=== PATIENT | male | born 1950 | race African-American/Black ===

== ENCOUNTER 2020-01-25 22:58 | Inpatient (IN) | payer MEDICAID, OTHER ==
[~2020-01-25] VITALS: Ht 175.3 cm; Wt 54.2 kg
[2020-01-25] MEDS ORDERED: SODIUM CHLORIDE 0.9% 500 ML IVB ONE (23:03)
[2020-01-26] VITALS (13 sets, daily range): BP systolic 85–98; BP diastolic 49–69
[2020-01-26] MEDS ORDERED: SODIUM CHLORIDE 0.9% 500 ML IV ONE
[2020-01-26 00:01] LABS: Basophils # (auto) 0 10 ^3/uL (0-0.2); Eosinophils # (auto) 0 10 ^3/uL (0-0.8); Eosinophils % (auto) 0.1 % (0.0-7.0); Mean Corpuscular Hemoglobin 22.6 pg (28.0-32.0); Monocytes # (auto) 0.4 10 ^3/uL (0-1.3); Monocytes % (auto) 4.2 % (0.0-12.0)
[2020-01-26 00:03] LABS: Basophils % (auto) 0.3 % (0.0-2.0); Hematocrit 22.2 % (41.0-53.0); Lymphocytes # (auto) 0.5 10 ^3/uL (0.4-5.4); Lymphocytes % (auto) 5.5 % (10.0-50.0); Mean Corpuscular Hgb Conc. 30.9 g/dL (32.0-36.0); Neutrophils # (auto) 8.4 10 ^3/uL (1.6-8.6); Neutrophils % (auto) 89.9 % (37.0-80.0); Nucleated Red Blood Cells % 0.8 %; Platelet Count (auto) 375 10^3/uL (140-450); Red Blood Cells 3.05 10^6/uL (4.5-5.90); White Blood Cell 9.4 10^3/uL (4.4-10.8)
[2020-01-26 00:08] LABS: Red Cell Distribution Width 31.1 % (11.8-14.3)
[2020-01-26 00:09] LABS: Hemoglobin 6.9 g/dL (13.5-17.5)
[2020-01-26 00:17] LABS: INR 1.36 (0.9-1.15); Partial Thromboplastin Time 26.6 sec (23.64-32.05)
[2020-01-26 00:24] LABS: Calcium 7.3 mg/dL (8.5-10.1); Magnesium 2.5 mg/dL (1.6-2.6); Potassium 3.9 mmol/L (3.5-5.1)
[2020-01-26 00:25] LABS: Lactic Acid w/Reflex 2.2 mmol/L (0.4-2.0)
[2020-01-26 00:26] LABS: Albumin 1.5 g/dL (3.4-5.0); BUN/Creatinine Ratio 111.8
[2020-01-26] MEDS ORDERED: ALBUMIN 5% 50 ML IV ONE ×2 (00:30→02:00)
[2020-01-26 00:34] LABS: Bilirubin, Total 0.4 mg/dL (0.2-1.0); CRP High Sensitivity 5.92 mg/dL (< 0.3); Total Protein 5.1 g/dL (6.4-8.2)
[2020-01-26] MEDS ORDERED: ALBUMIN 5% 250 ML IV ONE ×2 (00:45→02:30)
[2020-01-26] MEDS ORDERED: LEVOTHYROXINE SODIUM 100 MCG/5 ML INJ IV ONE (02:00)
[2020-01-26] MEDS ORDERED: PANTOPRAZOLE 40mg/50ML NS AE 50 ML IV ONE ×3 (02:30→05:30)
[2020-01-26] MEDS ORDERED: PANTOPRAZOLE 40 MG/10 ML VIAL INJ IV ONE ×2 (02:30)
[2020-01-26] MEDS ORDERED: ONDANSETRON HCL 4 MG/2 ML VIAL IV PRN (05:30)
[2020-01-26] MEDS ORDERED: MORPHINE SULF INJ 2 MG/ML SYRINGE 1ML IV PRN (05:45)
[2020-01-26] MEDS ORDERED: NITROGLYCERIN 0.4 MG SL TAB SL PRN (05:45)
[2020-01-26 06:43] LABS: Hematocrit 18.4 % (41.0-53.0)
[2020-01-26] MEDS: SODIUM CHLORIDE 0.9% 1,000 ML IV SCH ×2 (06:44→18:57)
[2020-01-26 06:49] LABS: Hemoglobin 5.9 g/dL (13.5-17.5)
[2020-01-26] MEDS: OCTREOTIDE ACETATE 500 MCG in SODIUM CHL 0.9% 99 ML IV SCH ×2 (07:47→17:43)
[2020-01-26] MEDS: PANTOPRAZOLE 40mg/50ML NS AE 50 ML IV SCH ×3 (10:17→20:28)
[2020-01-26] MEDS ORDERED: diphenhdrAMINE HCL 50 MG/1 ML VL ONE (14:17)
[2020-01-26] MEDS ORDERED: fentaNYL CITRATE 100 MCG/2 ML VL ONE (14:17)
[2020-01-26] MEDS ORDERED: LIDOCAINE VISCOUS 2% 15ML UD ONE (14:19)
[2020-01-26] MEDS: MIDAZOLAM HCL 5 MG/ML-1ML VIAL ONE ×2 (14:21→14:24)
[2020-01-26] MEDS ORDERED: AMINO ACID INFUSION IN D5W 2,000 ML IV NR ×2 (16:15→20:00)
[2020-01-26] MEDS ORDERED: DEXTROSE (50%) 50ML SYRG IV SCH (18:00)
[2020-01-26] MEDS: InsuLIN REG 1unit/0.01ml Soln (100units/ml) SC SCH (18:34)
[2020-01-26] MEDS: ACCU-CHEK COMFORT CURVE STRIP VI SCH (18:34)
[2020-01-26] MEDS ORDERED: PPN PER PHARMACY 0 ML IV SCH (20:00)
[2020-01-26 22:10] LABS: Hematocrit 31.8 % (41.0-53.0); Hemoglobin 9.9 g/dL (13.5-17.5)
[2020-01-27] MEDS: ACCU-CHEK COMFORT CURVE STRIP VI SCH ×4 (00:17→18:25)
[2020-01-27] MEDS: PANTOPRAZOLE 40mg/50ML NS AE 50 ML IV SCH ×2 (00:55→06:06)
[2020-01-27 01:17] LABS: Urine Bacteria NONE SEEN /hpf (None Seen); Urine Blood Negative /uL (Negative); Urine Hyaline Cast FEW /lpf (0 - 2); Urine Mucus FEW (None Seen); Urine Specific Gravity 1.024 (1.001-1.035); Urine WBC <1 /hpf (0 - 3)
[2020-01-27] MEDS ORDERED: OCTREOTIDE ACETATE 500 MCG/ML VL ONE (04:23)
[2020-01-27] MEDS: OCTREOTIDE ACETATE 500 MCG in SODIUM CHL 0.9% 99 ML IV SCH (04:44)
[2020-01-27] MEDS: InsuLIN REG 1unit/0.01ml Soln (100units/ml) SC SCH ×4 (06:00→18:00)
[2020-01-27 06:03] LABS: Basophils # (auto) 0 10 ^3/uL (0-0.2); Basophils % (auto) 0.1 % (0.0-2.0); Eosinophils # (auto) 0 10 ^3/uL (0-0.8); Eosinophils % (auto) 0.1 % (0.0-7.0); Hematocrit 29.7 % (41.0-53.0); Hemoglobin 9.7 g/dL (13.5-17.5); Lymphocytes # (auto) 0.4 10 ^3/uL (0.4-5.4); Mean Corpuscular Hgb Conc. 32.8 g/dL (32.0-36.0); Mean Corpuscular Volume 79.5 fL (80.0-100.0); Monocytes # (auto) 0.4 10 ^3/uL (0-1.3); Monocytes % (auto) 2.9 % (0.0-12.0); Neutrophils # (auto) 14.1 10 ^3/uL (1.6-8.6); Neutrophils % (auto) 93.9 % (37.0-80.0); Nucleated Red Blood Cells % 0.5 %; Platelet Count (auto) 218 10^3/uL (140-450); Red Blood Cells 3.74 10^6/uL (4.5-5.90)
[2020-01-27 06:06] LABS: Red Cell Distribution Width 24.5 % (11.8-14.3)
[2020-01-27 06:08] LABS: INR 1.23 (0.9-1.15)
[2020-01-27 06:11] LABS: Albumin 1.8 g/dL (3.4-5.0); BUN/Creatinine Ratio 133.3; Calcium 6.9 mg/dL (8.5-10.1); Magnesium 2.3 mg/dL (1.6-2.6); Potassium 3.3 mmol/L (3.5-5.1)
[2020-01-27 06:25] LABS: Bilirubin, Total 0.6 mg/dL (0.2-1.0); Phosphorus 1.2 mg/dL (2.5-4.90); Total Protein 4.6 g/dL (6.4-8.2)
[2020-01-27 08:15] VITALS: BP 107/66
[2020-01-27] MEDS ORDERED: POTASSIUM PHOSPHATE 44 MEQ in D5W 5% 250 ML IV ONE (09:30)
[2020-01-27] MEDS: SODIUM CHLORIDE 0.9% 1,000 ML IV SCH (10:21)
[2020-01-27] MEDS ORDERED: TPN PER PHARMACY 0 ML IV SCH (10:30)
--- NOTE | 2020-01-27 10:53 | NUR ---
Nutrition Consult Est energy needs 8331-0182 kcal (30-35 kcal/kg BW 49.895kg) Est protein needs 50-65g (1-1.3g/kg BW 49.895 d/t edmond espinosa alb) Will reassess prn Addendum: 01/27/20 at [address] Amended: Links added.
[2020-01-27 11:50] LABS: Hematocrit 30.8 % (41.0-53.0); Hemoglobin 9.9 g/dL (13.5-17.5)
[2020-01-27 12:00] VITALS: BP 102/60
[2020-01-27] MEDS: PIPERACILLIN-TAZOB 3.375GM 100 ML IV SCH ×2 (15:35→21:54)
[2020-01-27 17:00] VITALS: BP 105/67
[2020-01-27] MEDS: LACTATED RINGER'S 1,000 ML IV SCH (18:11)
[2020-01-27 18:19] LABS: Hematocrit 28.1 % (41.0-53.0); Hemoglobin 9.1 g/dL (13.5-17.5)
[2020-01-27 18:41] LABS: Pre Albumin 4.4 mg/dL (20.0-40.0)
--- NOTE | 2020-01-27 19:45 | NUR ---
Opening Shift Note Assumed care of patient, awake and alert. No S/S of distress/SOB or pain noted. Instructed on POC and to call for assist PRN. Bed is in lowest locked position with bed rails up x2 and call light is within reach of the patient.
[2020-01-27] MEDS ORDERED: PPN PER PHARMACY IV NR ×9 (20:00)
[2020-01-27 22:00] VITALS: BP 107/65
--- NOTE | 2020-01-27 23:00 | NUR ---
Bed bath: Bed bath given to the patient. Patient tolerated well. All linens changed. No s/s of distress SOB or pain noted. Call light is within reach of the patient.
[2020-01-28] MEDS: LACTATED RINGER'S 1,000 ML IV SCH ×2 (00:09→13:10)
[2020-01-28] MEDS: ACCU-CHEK COMFORT CURVE STRIP VI SCH ×5 (00:11→23:48)
[2020-01-28 05:00] VITALS: BP 98/68
[2020-01-28] MEDS: PIPERACILLIN-TAZOB 3.375GM 100 ML IV SCH ×3 (05:32→22:48)
[2020-01-28] MEDS: InsuLIN REG 1unit/0.01ml Soln (100units/ml) SC SCH ×5 (05:39→23:48)
[2020-01-28 07:22] LABS: Basophils # (auto) 0 10 ^3/uL (0-0.2); Eosinophils # (auto) 0 10 ^3/uL (0-0.8); Eosinophils % (auto) 0.1 % (0.0-7.0); Hematocrit 26.5 % (41.0-53.0); Hemoglobin 9.2 g/dL (13.5-17.5); Lymphocytes # (auto) 0.5 10 ^3/uL (0.4-5.4); Lymphocytes % (auto) 6.1 % (10.0-50.0); Mean Corpuscular Hemoglobin 27.3 pg (28.0-32.0); Mean Corpuscular Hgb Conc. 34.6 g/dL (32.0-36.0); Monocytes # (auto) 0.5 10 ^3/uL (0-1.3); Monocytes % (auto) 5.2 % (0.0-12.0); Neutrophils # (auto) 7.8 10 ^3/uL (1.6-8.6); Neutrophils % (auto) 88.6 % (37.0-80.0); Nucleated Red Blood Cells % 1.2 %; Platelet Count (auto) 194 10^3/uL (140-450); Red Blood Cells 3.36 10^6/uL (4.5-5.90); White Blood Cell 8.8 10^3/uL (4.4-10.8)
[2020-01-28 07:26] LABS: Red Cell Distribution Width 24.3 % (11.8-14.3)
--- NOTE | 2020-01-28 07:35 | NUR ---
Opening shift note Assumed care of patient from NOC FLASH Garcia. Patient is AOx4 no s/s of distress noted. Bed is in lowest locked position, side rails up x2, and call light is within reach. Updated patient on plan of care and patient verbalized understanding. Will continue to monitor q1hr and PRN.
[2020-01-28 07:41] LABS: Albumin 1.4 g/dL (3.4-5.0); BUN/Creatinine Ratio 106.9; Calcium 6.7 mg/dL (8.5-10.1); Magnesium 2.2 mg/dL (1.6-2.6); Potassium 3.3 mmol/L (3.5-5.1)
[2020-01-28 07:58] LABS: Bilirubin, Total 0.4 mg/dL (0.2-1.0); Phosphorus 2.3 mg/dL (2.5-4.90); Total Protein 4.3 g/dL (6.4-8.2)
[2020-01-28 09:07] VITALS: BP 95/61
[2020-01-28] MEDS ORDERED: POTASSIUM PHOSP 22MEQ(15MMOLE) in NS 100 ML IV ONE (10:45)
[2020-01-28] MEDS ORDERED: SODIUM PHOSP 20MEQ(15MMOL) IN NS 100 ML IV ONE (10:45)
--- NOTE | 2020-01-28 10:55 | NUR ---
IV removal IV at right forearm noted to be leaking and not patent. IV DC'd with clean sterile technique, catheter fully intact. Pressure dressing applied to site. Patient tolerated well.
--- NOTE | 2020-01-28 11:00 | NUR ---
IV insertion IV access obtained, via clean sterile technique by inserting 22 gauge catheter at right upper arm after 1 attempt. IV secured properly. No trauma to site. Patient tolerated well.
--- NOTE | 2020-01-28 12:00 | NUR ---
Physician rounding Dr. Cooper at bedside, updated MD on patient status. New orders received, will follow through with orders and will continue care.
[2020-01-28] MEDS ORDERED: VANCOMYCIN PER PHARMACY 0 MG IV SCH (12:30)
[2020-01-28] MEDS ORDERED: POTASSIUM EFFERVESENT TAB 25 MEQ PO ONE (12:30)
[2020-01-28 12:54] VITALS: BP 94/59
[2020-01-28] MEDS ORDERED: VANCOMYCIN 1GM/250ML 250 ML IV ONE (13:00)
--- NOTE | 2020-01-28 14:38 | NUR ---
Temperature reassessment Temperature is now 98.4. Patient is resting comfortably in bed, no s/s of distress noted. Will continue care.
[2020-01-28 16:54] VITALS: BP 104/68
[2020-01-28 17:43] LABS: Hemoglobin 8.8 g/dL (13.5-17.5)
[2020-01-28 17:45] LABS: Hematocrit 26.9 % (41.0-53.0)
[2020-01-28] MEDS: Ensure HIGH Protein Chocolate 8oz Bottle PO SCH (18:00)
--- NOTE | 2020-01-28 19:24 | NUR ---
END OF SHIFT NOTE Endorsed care to NOC FLASH Garcia, no s/s of distress noted.
[2020-01-28] MEDS ORDERED: PPN PER PHARMACY IV NR ×9 (20:00)
[2020-01-28 23:46] VITALS: BP 90/54
--- NOTE | 2020-01-29 01:02 | NUR ---
Vanco: No 750mg in 250 ml bag of vanco available as scheduled. Will recalculate to administer dose as ordered from available 1 gm vancomycin in 250 mls. Called extended pharmacy and spoke to Merrill to verify ml dose needed to be given for appropriate dosing. Amount verified as 187.5 ml to be given to the patient from available 1 gm in 250 ml to give administer ordered dose of 750mg of Vancomycin.
[2020-01-29] MEDS ORDERED: VANCOMYCIN 1GM/250ML 250 ML IV ONE (01:36)
[2020-01-29] MEDS: VANCOMYCIN 750mg/250ml 250 ML IV SCH ×2 (01:41→13:10)
[2020-01-29] MEDS: LACTATED RINGER'S 1,000 ML IV SCH ×3 (02:30→23:55)
[2020-01-29 05:55] VITALS: BP 96/62
[2020-01-29] MEDS: ACCU-CHEK COMFORT CURVE STRIP VI SCH ×4 (06:00→23:54)
[2020-01-29] MEDS: InsuLIN REG 1unit/0.01ml Soln (100units/ml) SC SCH ×4 (06:00→23:54)
[2020-01-29 06:08] LABS: Basophils # (auto) 0 10 ^3/uL (0-0.2); Basophils % (auto) 0.1 % (0.0-2.0); Eosinophils # (auto) 0 10 ^3/uL (0-0.8); Hematocrit 25.4 % (41.0-53.0); Hemoglobin 8.4 g/dL (13.5-17.5); Monocytes # (auto) 0.4 10 ^3/uL (0-1.3)
[2020-01-29 06:16] LABS: Eosinophils % (auto) 0.1 % (0.0-7.0); Lymphocytes # (auto) 0.6 10 ^3/uL (0.4-5.4); Lymphocytes % (auto) 10.1 % (10.0-50.0); Mean Corpuscular Hemoglobin 26.2 pg (28.0-32.0); Mean Corpuscular Hgb Conc. 33.1 g/dL (32.0-36.0); Monocytes % (auto) 6.5 % (0.0-12.0); Neutrophils # (auto) 5.2 10 ^3/uL (1.6-8.6); Neutrophils % (auto) 83.2 % (37.0-80.0); Nucleated Red Blood Cells % 0.7 %; Platelet Count (auto) 180 10^3/uL (140-450); Red Blood Cells 3.22 10^6/uL (4.5-5.90); White Blood Cell 6.2 10^3/uL (4.4-10.8)
[2020-01-29 06:32] LABS: Chloride 112 mmol/L (98-107); Potassium 3.7 mmol/L (3.5-5.1); Sodium 139 mmol/L (136-145)
[2020-01-29] MEDS: PIPERACILLIN-TAZOB 3.375GM 100 ML IV SCH ×3 (06:34→22:42)
[2020-01-29 06:59] LABS: Red Cell Distribution Width 24.2 % (11.8-14.3)
[2020-01-29 07:05] LABS: Alanine Aminotransferase 22 U/L (16-61); Albumin 1.3 g/dL (3.4-5.0); Alkaline Phosphatase 59 U/L (45-117); Anion Gap 5 (5-15); Aspartate Aminotransferase 12 U/L (15-37); BUN/Creatinine Ratio 95.5; Bilirubin, Total 0.4 mg/dL (0.2-1.0); Blood Urea Nitrogen 21 mg/dL (7-18); Calcium 6.8 mg/dL (8.5-10.1); Carbon Dioxide 22 mmol/L (21-32); GFR African American 548 mL/min; GFR Non-African American 453 mL/min; Glucose 104 mg/dL (74-106); Phosphorus 1.6 mg/dL (2.5-4.90); Pre Albumin < 3.0 mg/dL (20.0-40.0); Total Protein 4.2 g/dL (6.4-8.2); Triglycerides 97 mg/dL (< 150)
[2020-01-29 08:00] VITALS: BP 96/61
[2020-01-29] MEDS: Ensure HIGH Protein Chocolate 8oz Bottle PO SCH ×3 (08:07→17:23)
[2020-01-29] MEDS ORDERED: POTASSIUM PHOSPHATE 44 MEQ in D5W 5% 250 ML IV ONE (09:00)
--- NOTE | 2020-01-29 11:00 | NUR ---
Potassium Phosphate / PICC line Received from pharmacy and started infusing. Contacted PICC line nurse earlier this morning. She said she has a lot on the list today and will get to the PICC line as soon as she can but it will probably be later in the day.
[2020-01-29 12:00] VITALS: BP 92/58
--- NOTE | 2020-01-29 12:13 | NUR ---
Nutrition Follow-up Notes Wt.: 53.7 kg Pt was sleeping with no family by bedside. per records pt with large bleeding stomach ulcer. pt with no more bleeding per records. pt is currently on full liq diet with ensure HP tid with adequate PO of 75% x 6 per RN doc. pt also on PN support @ 56 ml/hr providing 848 kcals and 60 gm proteins 608 NCP. Est energy needs 8939-4616 kcal (30-35 kcal/kg BW 49.895kg) Est protein needs 50-65g (1-1.3g/kg BW 49.895 d/t underwt, low alb) Will continue to monitor and reassess prn. Labs: CA 6.8 L, PREALB <3.0 L, ALB 1.3 L. Skin: Abram scale 17 mod risk. refer to notes for details GI: Pt had 2 BM yesterday per crab butcher. PES: 1) Underweight aeb pt is 69% of IBW and pt BMI is 16.2kg/m2 r/t caloric intake less than energy needs Inadequate oral intake aeb pt NPO and pt with TPN running r/t current medical condition Will continue to monitor PO intake, PN tolerance, skin status, pertinent labs and weight trend. F/u in 2-3 days. Rec.: 1.)1) Advance diet as medically feasible 2) consider to taper off PN support if pt is able to tolerate PO and has aequte PO. 3) continue current plan of care
--- NOTE | 2020-01-29 14:51 | NUR ---
PICC line placement Patient educated on need for PICC line placement. All risks and benefits explained and all questions and concerns addressed prior to procedure. Noted past medical history and allergies with no contraindications. INR and Plt counts within acceptable range. 5 fr PICC line inserted via right basilic vein using [employer] US and Tip Location System. Sterile technique with maximum barrier precautions utilized. Blood return obtained from each of the 2 lumens and each flushed easily with NS using proper technique. PICC secured with Stat-lock; biodisc and occlusive dressing applied. Stat portable chest x-ray obtained for PICC tip placement. *Baseline Arm Circumference 21 cm. Internal length 44 cm. External length 0 cm. PICC lot # [id number]
[2020-01-29] MEDS ORDERED: LIDOCAINE 1% (LOCAL ANESTH.) PF 5ml SDV ID ONE (15:00)
--- NOTE | 2020-01-29 15:00 | NUR ---
Spoke with pharmacy/meds Per pharmacistyuli to run Zosyn and Potassium Phosphate together. Neither medication is compatible with LR.
--- NOTE | 2020-01-29 15:12 | NUR ---
Okay to use PICC line Xray completed and reviewed. Okay to use PICC line. Lydia VIDALES notified.
[2020-01-29 17:00] VITALS: BP 94/58
--- NOTE | 2020-01-29 19:45 | NUR ---
Opening Shift Note Assumed care of patient, awake and alert. No S/S of distress/SOB noted. Instructed on POC and to call for assist PRN. Bed is in lowest locked position with bed rails up x2 and call light is within reach of the patient.
[2020-01-29] MEDS ORDERED: PPN PER PHARMACY IV NR ×11 (20:00)
[2020-01-29 21:29] VITALS: BP 95/58
[2020-01-29] MEDS: PANTOPRAZOLE 40 MG/10 ML VIAL INJ IV SCH (21:59)
[2020-01-29] MEDS: SODIUM CHLOR 0.9% PF (SALINE LOCK) 10ML VIAL/SYR IV SCH (22:07)
[2020-01-30 04:47] VITALS: BP 100/62
[2020-01-30] MEDS: ACCU-CHEK COMFORT CURVE STRIP VI SCH ×3 (06:00→18:16)
[2020-01-30] MEDS: InsuLIN REG 1unit/0.01ml Soln (100units/ml) SC SCH ×3 (06:00→18:00)
[2020-01-30 06:05] LABS: Hematocrit 24.4 % (41.0-53.0); Hemoglobin 8.2 g/dL (13.5-17.5)
[2020-01-30 06:26] LABS: Albumin 1.2 g/dL (3.4-5.0); Calcium 6.7 mg/dL (8.5-10.1)
[2020-01-30 06:29] LABS: BUN/Creatinine Ratio 78.9; Bilirubin, Total 0.4 mg/dL (0.2-1.0); Phosphorus 2.6 mg/dL (2.5-4.90); Total Protein 4.1 g/dL (6.4-8.2)
[2020-01-30] MEDS: PIPERACILLIN-TAZOB 3.375GM 100 ML IV SCH ×3 (06:35→22:32)
[2020-01-30] MEDS: Ensure HIGH Protein Chocolate 8oz Bottle PO SCH ×3 (07:24→18:16)
[2020-01-30 08:21] VITALS: BP 90/56
[2020-01-30] MEDS: SODIUM CHLOR 0.9% PF (SALINE LOCK) 10ML VIAL/SYR IV SCH ×2 (09:54→22:33)
[2020-01-30] MEDS: PANTOPRAZOLE 40 MG/10 ML VIAL INJ IV SCH ×2 (09:54→22:33)
[2020-01-30 12:12] VITALS: BP 97/57
[2020-01-30 16:45] VITALS: BP 96/60
[2020-01-30] MEDS: LACTATED RINGER'S 1,000 ML IV SCH (18:17)
[2020-01-30] MEDS ORDERED: TPN PER PHARMACY IV NR ×10 (20:00)
[2020-01-30 22:00] VITALS: BP 102/57
--- NOTE | 2020-01-30 22:45 | NUR ---
Opening Shift Note Assumed care of patient, awake and alert. No S/S of distress/SOB or pain. Instructed on POC and to call for assist PRN, will continue to monitor for changes Q1hr and PRN. Bed in low position call light within reach. fall precautions in place.
[2020-01-31] MEDS: ACCU-CHEK COMFORT CURVE STRIP VI SCH ×4 (00:04→18:09)
[2020-01-31 05:00] VITALS: BP 110/60
--- NOTE | 2020-01-31 05:01 | NUR ---
PATIENT HAD BM. PARTIAL BED BATH GIVEN AND LINEN CHANGE DONE. FALL PRECAUTIONS IN PLACE CALL LIGHT WITHIN REACH.
[2020-01-31] MEDS: InsuLIN REG 1unit/0.01ml Soln (100units/ml) SC SCH ×4 (05:46→18:00)
[2020-01-31] MEDS: PIPERACILLIN-TAZOB 3.375GM 100 ML IV SCH ×2 (06:11→15:39)
--- NOTE | 2020-01-31 06:23 | NUR ---
IV removal IV DC'd with clean sterile technique to left FA and R AC, catheter fully intact. Pressure dressing applied to site. Patient tolerated well.
[2020-01-31 06:54] LABS: Albumin 1.2 g/dL (3.4-5.0); Calcium 6.4 mg/dL (8.5-10.1); Potassium 3.8 mmol/L (3.5-5.1)
[2020-01-31 06:58] LABS: BUN/Creatinine Ratio 57.9; Bilirubin, Total 0.3 mg/dL (0.2-1.0); Phosphorus 2.2 mg/dL (2.5-4.90); Total Protein 4.2 g/dL (6.4-8.2)
--- NOTE | 2020-01-31 07:27 | NUR ---
REPORT GIVEN TO DAYSHIFT RN. PATIENT IS AWAKE AND ALERT DENIES SOB DISTRESS OR PAIN. FALL PRECAUTIONS IN PLACE.
[2020-01-31] MEDS: Ensure HIGH Protein Chocolate 8oz Bottle PO SCH ×3 (08:00→18:33)
[2020-01-31] MEDS ORDERED: OMNIPAQUE ORAL SOLN 500ml 12mg/ml PO ONE (08:36)
[2020-01-31 09:00] VITALS: BP 98/63
[2020-01-31] MEDS: LACTATED RINGER'S 1,000 ML IV SCH ×2 (10:13→21:10)
[2020-01-31] MEDS: SODIUM CHLOR 0.9% PF (SALINE LOCK) 10ML VIAL/SYR IV SCH ×2 (10:14→21:20)
[2020-01-31] MEDS: PANTOPRAZOLE 40 MG/10 ML VIAL INJ IV SCH ×2 (10:14→21:20)
[2020-01-31] MEDS ORDERED: SODIUM PHOSPHATES 24 MEQ in SODIUM CHL 0.9% 100 ML IV ONE (11:00)
[2020-01-31] MEDS ORDERED: SODIUM PHOSPHATES 40 MEQ in D5W 5% 250 ML IV ONE (11:00)
--- NOTE | 2020-01-31 11:44 | NUR ---
Nutrition Follow-up Notes Wt.: 59.8 kg Pt was sleeping with no family by bedside. per records pt with bleeding stomach ulcer, no more bleeding. pt is currently on full liq diet with ensure HP tid with adequate PO of 75% x 6 per RN doc. pt also on PN support @ 52 ml/hr providing 1290 kcals and 60 gm proteins 1050 NCP. pt with fair PN support as it meets 74-86% kcals and 92-120% proteins Est energy needs 6588-4471 kcal (30-35 kcal/kg BW 49.895kg) Est protein needs 50-65g (1-1.3g/kg BW 49.895 d/t underwt, low alb) Will continue to monitor and reassess prn. Labs: CA 6.4 L, ALB 1.2 L. Skin: Abram scale 17 mod risk. refer to WC notes for details GI: Pt had 1 BM today per filler and trimmer. PES: 1) Underweight aeb pt is 69% of IBW and pt BMI is 16.2kg/m2 r/t caloric intake less than energy needs Inadequate oral intake aeb pt NPO and pt with TPN running r/t current medical condition Will continue to monitor PO intake, PN tolerance, skin status, pertinent labs and weight trend. F/u in 2-3 days. Rec.: 1.)1) Advance diet as medically feasible 2) consider to taper off PN support if pt is able to tolerate PO and has adequate PO. 3) continue current plan of care
[2020-01-31 13:00] VITALS: BP 109/74
[2020-01-31] MEDS ORDERED: IOHEXOL 300 MG/ML 100ML BOTTLE IJ ONE ×2 (13:00→13:03)
--- NOTE | 2020-01-31 15:22 | NUR ---
Received call from Radiology stating report for chest CT is now available on [employer] Results endorsed to Dr. Ravi including multiple pulmonary emboli. New orders received for bilat DVT. Patient sitting up in bed no acute distress or sob noted. Patient currently on room air. Call light within reach
[2020-01-31 17:00] VITALS: BP 101/60
--- NOTE | 2020-01-31 18:26 | NUR ---
Received call from [facility] regarding report is ready for bilat lower extremity ultrasound and result showing focal DVT involving a sort segment on the proximal left superficial femoral vein and focal dvt of right popliteal vein. Hospitalist paged to notify
--- NOTE | 2020-01-31 18:40 | NUR ---
Spoke to [facility] MARKET STALL VENDOR aware of patient's bilat lower extremity ultrasound results including positive bilat DVT's. MD Ravi aware of positive PEs and no new orders were received. No new orders received at this time from [facility]. No active bleeding reported all day today, patient denies abd pain, denies n/v. No s/s of large hematomas or bleeding noted. Patient is laying comfortably in bed in no acute distress or sob noted. Call light within reach.
--- NOTE | 2020-01-31 19:00 | NUR ---
Patient care endorsed endorse to Mikayla somers. Patient laying comfortably in bed no acute distress or sob. Call light within reach
--- NOTE | 2020-01-31 19:08 | NUR ---
Opening Shift Note Assumed care of patient, awake and alert. No S/S of distress/SOB or pain. Instructed on POC and to call for assist PRN, will continue to monitor for changes Q1hr and PRN. fall precautions in place. bed in low position and call light within reach.
[2020-01-31] MEDS ORDERED: TPN PER PHARMACY IV NR ×10 (20:00)
[2020-01-31 22:00] VITALS: BP 101/65
[2020-02-01] MEDS: PIPERACILLIN-TAZOB 3.375GM 100 ML IV SCH ×4 (00:17→23:06)
[2020-02-01] MEDS: ACCU-CHEK COMFORT CURVE STRIP VI SCH ×4 (00:18→18:20)
[2020-02-01 05:00] VITALS: BP 97/64
[2020-02-01 05:53] VITALS: BP 100/61
[2020-02-01] MEDS: InsuLIN REG 1unit/0.01ml Soln (100units/ml) SC SCH ×4 (05:54→18:00)
[2020-02-01 06:54] LABS: Basophils # (auto) 0 10 ^3/uL (0-0.2); Eosinophils # (auto) 0 10 ^3/uL (0-0.8); Mean Corpuscular Hemoglobin 26.4 pg (28.0-32.0); Mean Corpuscular Hgb Conc. 33.3 g/dL (32.0-36.0); Monocytes # (auto) 0.4 10 ^3/uL (0-1.3)
[2020-02-01 06:56] LABS: Basophils % (auto) 0.9 % (0.0-2.0); Hematocrit 24.2 % (41.0-53.0); Lymphocytes # (auto) 0.4 10 ^3/uL (0.4-5.4); Lymphocytes % (auto) 9.5 % (10.0-50.0); Mean Corpuscular Volume 79.5 fL (80.0-100.0); Monocytes % (auto) 8.1 % (0.0-12.0); Neutrophils # (auto) 3.6 10 ^3/uL (1.6-8.6); Neutrophils % (auto) 81.5 % (37.0-80.0); Nucleated Red Blood Cells % 0.2 %; Platelet Count (auto) 224 10^3/uL (140-450); Red Blood Cells 3.04 10^6/uL (4.5-5.90); White Blood Cell 4.4 10^3/uL (4.4-10.8)
[2020-02-01 07:16] LABS: Potassium 3.7 mmol/L (3.5-5.1)
--- NOTE | 2020-02-01 07:20 | NUR ---
REPORT GIVEN TO DAYSHIFT RN PATIENT IS AWAKE AND ALERT DENIES SOB DISTRESS OR PAIN. FALL PRECAUTIONS IN PLACE. IV PATENT AND ASYMPTOMATIC.
[2020-02-01 07:24] LABS: Albumin 1.2 g/dL (3.4-5.0); BUN/Creatinine Ratio 47.4; Bilirubin, Total 0.2 mg/dL (0.2-1.0); Calcium 6.8 mg/dL (8.5-10.1); Magnesium 2.2 mg/dL (1.6-2.6); Phosphorus 2.8 mg/dL (2.5-4.90); Total Protein 4.3 g/dL (6.4-8.2)
--- NOTE | 2020-02-01 07:30 | NUR ---
Opening Shift Note Assumed care of patient, awake and alert. No S/S of distress/SOB. Pt denies having any pain at this time. Bed in lowest and locked position with side rails up x2 and call light in reach. Instructed on POC and to call for assist PRN, will continue to monitor for changes Q1hr and PRN.
[2020-02-01] MEDS: Ensure HIGH Protein Chocolate 8oz Bottle PO SCH ×3 (07:50→18:19)
--- NOTE | 2020-02-01 08:55 | NUR ---
Hold PT today. Pt found to have BLE DVTs and PE. Pt's INR is below the therapeutic range.
[2020-02-01 09:00] VITALS: BP 101/59
[2020-02-01] MEDS: SODIUM CHLOR 0.9% PF (SALINE LOCK) 10ML VIAL/SYR IV SCH ×2 (10:33→22:00)
[2020-02-01] MEDS: PANTOPRAZOLE 40 MG/10 ML VIAL INJ IV SCH ×2 (10:33→21:53)
[2020-02-01] MEDS: LACTATED RINGER'S 1,000 ML IV SCH (10:34)
[2020-02-01 12:52] VITALS: BP 109/61
--- NOTE | 2020-02-01 13:00 | NUR ---
SOCIAL SERVICE CONSULT AMBULATORY TECHNOLOGIST SPOKE WITH PT AND CONFERRED WITH BEDSIDE RN, PT IS PENDING TRANSFER TO HIGHER LEVEL OF CARE, PT IS AMENABLE TO TRANSFER. PT IS A 69 YR OLD AA MALE ADMITTED FOR GI BLEED. HE HAS A HX OF ABD CANCER. PT WAS A/A/OX4, RECEPTIVE TO SS VISIT, EUTHYMIC MOOD, COPING WELL WITH HIS DIAGNOSIS. PT DOES NOT HAVE A PCP, HE RECENTLY MOVED TO THE AREA, HE WAS PREVIOUSLY HOMELESS AND LIVING ON THE [address] IN [place]. PT NOW RESIDES WITH HIS BROTHER KARLOS [phone] WHO IS SUPPORTIVE. PT DOES NOT HAVE AN AHCD, KARLOS IS HIS EMERGENCY DECISION MAKER. PT DOES NOT USE DME AT HOME BUT ADMITS HE HAS HAD TROUBLE AMBULATING LATELY DUE TO WEAKNESS. NO OTHER SS NEEDS AT THIS TIME, AMBULATORY TECHNOLOGIST TO REMAIN AVAILABLE NEEDED.
--- NOTE | 2020-02-01 16:13 | NUR ---
1610 02/01/20 - Faxed to the following face sheet, transfer order to a HIGHER LEVEL OF CARE for surgical oncologist, labs, meds, H/P, consults, imaging to transfer centers of [facility], [facility], transfer pending.
--- NOTE | 2020-02-01 16:45 | NUR ---
SPOKE TO NATACHA WITH [employer] CONCRETE IRONWORKER. PER NATACHA, THE PATIENT MUST HAVE A COVID-19 TEST PRIOR TO TRANSFER.
[2020-02-01 17:00] VITALS: BP 105/66
--- NOTE | 2020-02-01 18:11 | NUR ---
COVID-19 SWAB WALKED TO LAB BY PRIMARY RN.
--- NOTE | 2020-02-01 19:30 | NUR ---
Opening Shift Note Assumed care of patient, awake and alert. No S/S of distress/SOB or pain. Instructed on POC and to call for assist PRN, will continue to monitor for changes Q1hr and PRN.
[2020-02-01] MEDS ORDERED: TPN PER PHARMACY IV NR ×11 (20:00)
[2020-02-01 22:00] VITALS: BP 94/58
[2020-02-02] MEDS: ACCU-CHEK COMFORT CURVE STRIP VI SCH ×5 (00:19→23:34)
--- NOTE | 2020-02-02 04:38 | NUR ---
Received call from Lab that patient tested positive for COVID. integrated campaign manager notified and instructions received to transfer patient to room 236. Belongings gathered and patient transferred from wheelchair to 236. Report given to Paulette VIDALES. Patient tolerated well.
--- NOTE | 2020-02-02 04:39 | NUR ---
Patient transferred to ADS/COVID unit. Patient test returned positive for COVID. Report given by FLASH Hargrove. Patient AOx4, no s/s of pain or distress. Patient receiving TPN. Patient tolerated transfer well. Will continue to monitor.
[2020-02-02] MEDS: InsuLIN REG 1unit/0.01ml Soln (100units/ml) SC SCH ×5 (06:00→23:57)
[2020-02-02] MEDS: PIPERACILLIN-TAZOB 3.375GM 100 ML IV SCH ×3 (06:40→23:34)
--- NOTE | 2020-02-02 07:00 | NUR ---
Opening Shift Note RECEIVED REPORT FROM NOC RN. Assumed care of patient, awake and alert. No S/S of distress/SOB or pain. BED IN LOWEST, LOCKED POSITION WITH SIDERAILS UP x2 AND CALL LIGHT WITHIN REACH. Instructed on POC and to call for assist PRN, will continue to monitor for changes Q1hr and PRN.
[2020-02-02 08:02] LABS: Hemoglobin 7.9 g/dL (13.5-17.5)
[2020-02-02 08:19] LABS: Potassium 4.1 mmol/L (3.5-5.1)
[2020-02-02 08:28] LABS: Albumin 1.2 g/dL (3.4-5.0); BUN/Creatinine Ratio 45.8; Bilirubin, Total 0.1 mg/dL (0.2-1.0); Calcium 6.7 mg/dL (8.5-10.1); Magnesium 2.1 mg/dL (1.6-2.6); Phosphorus 2.6 mg/dL (2.5-4.90); Total Protein 4.4 g/dL (6.4-8.2)
[2020-02-02 08:43] VITALS: BP 104/66
[2020-02-02] MEDS: SODIUM CHLOR 0.9% PF (SALINE LOCK) 10ML VIAL/SYR IV SCH ×2 (12:26→23:32)
[2020-02-02] MEDS: Ensure HIGH Protein Chocolate 8oz Bottle PO SCH ×3 (12:26→17:36)
[2020-02-02] MEDS: PANTOPRAZOLE 40 MG/10 ML VIAL INJ IV SCH ×2 (12:26→23:32)
[2020-02-02 13:00] VITALS: BP 110/62
--- NOTE | 2020-02-02 13:30 | NUR ---
Pt declined PT tx due to c/o stomach upset with nausea. Addendum: 02/02/20 at 1503 by Fran Hernandez PTA Amended: Links added.
--- NOTE | 2020-02-02 13:45 | NUR ---
IN-HOUSE COVID SWAB PERFORMED ON PATIENT.
--- NOTE | 2020-02-02 13:50 | NUR ---
IN-HOUSE COVID SWAB GIVEN TO KIKI, INSTRUCTOR OF SPANISH, TO BE TAKEN TO LAB.
--- NOTE | 2020-02-02 14:07 | NUR ---
Nutrition Follow-up Notes Wt.: 57.6 kg Pt on full liq diet with TPN order at 60 ml/hr to provide 1580 kcal and 65g of protein. This TPN order provides 90-106% of energy needs and 100-130% of protein needs. Unable to see pt as pt is COVID positive in COVID wing. Est energy needs 6891-3630 kcal (30-35 kcal/kg BW 49.895kg) Est protein needs 50-65g (1-1.3g/kg BW 49.895 d/t underwt, low alb) Will continue to monitor and reassess prn. Labs: Creat 0.24L, GLUC 117H, Alb 1.2L, Ca 6.7L Skin: Abram scale 16 mod risk. refer to WC notes for details GI: Pt had 1 BM today per director [place] sales. PES: Partially resolved: Pt BMI 18.8 kg/m2 1) Underweight aeb pt is 69% of IBW and pt BMI is 16.2kg/m2 r/t caloric intake less than energy needs Inadequate oral intake aeb pt NPO and pt with TPN running r/t current medical condition Will continue to monitor PO intake, PN tolerance, skin status, pertinent labs and weight trend. F/u in 3-5 days. Rec.: )1) Advance diet as medically feasible 2) consider to taper off PN support if pt is able to tolerate PO and has adequate PO. 3) continue current plan of care
--- NOTE | 2020-02-02 14:11 | NUR ---
PATIENT REFUSED PT.
[2020-02-02] MEDS: LACTATED RINGER'S 1,000 ML IV SCH ×2 (14:58→17:07)
--- NOTE | 2020-02-02 16:49 | NUR ---
1245 02/02/20- Contacted by [facility] MARCIO hospitality coordinator Daja, patient has been declined due to current COVID 19 positive. is willing to accept patient as an outpatient after he recovers.
[2020-02-02 17:09] VITALS: BP 84/47
--- NOTE | 2020-02-02 17:51 | NUR ---
IN-HOUSE COVID SWAB IS POSITIVE.
--- NOTE | 2020-02-02 19:15 | NUR ---
Opening Shift Note Assumed care of patient, awake and alert. No S/S of distress/SOB or pain. Safety measures in place bed in lowest position, side rails up x2, and call light within reach. Instructed on POC and to call for assist PRN, will continue to monitor for changes Q1hr and PRN.
[2020-02-02] MEDS ORDERED: TPN PER PHARMACY IV NR ×10 (20:00)
[2020-02-02 22:00] VITALS: BP 94/62
[2020-02-03 05:00] VITALS: BP 96/64
--- NOTE | 2020-02-03 05:51 | NUR ---
LAB Unable to obtain lab blood sample. Notified the technicians. Lab technicians informed. A.M. labs will be drawn after change of shift. Will inform mar VIDALES.
[2020-02-03] MEDS: InsuLIN REG 1unit/0.01ml Soln (100units/ml) SC SCH ×4 (06:00→23:39)
[2020-02-03] MEDS: PIPERACILLIN-TAZOB 3.375GM 100 ML IV SCH ×3 (06:36→23:35)
[2020-02-03] MEDS: ACCU-CHEK COMFORT CURVE STRIP VI SCH ×4 (06:36→23:39)
--- NOTE | 2020-02-03 06:40 | NUR ---
Respiratory note: PT AWAKE, AND ALERT. NO RESPIRATORY DISTRESS NOTED. SPO2 98% ON RA, HR 60, RR 16, BS CLEAR/DIMINISHED BILATERALLY. PT INFORMED TO PUSH CALL BUTTON IF INCREASED WOB, SOB, OR WHEEZING OCCURS. NO FURTHER RESPIRATORY INTERVENTIONS INDICATED. CHARTING COMPLETE FROM OUTSIDE OF PT ROOM.
[2020-02-03 08:51] LABS: Hematocrit 24.3 % (41.0-53.0)
[2020-02-03 09:00] VITALS: BP 91/62
[2020-02-03 09:11] LABS: Albumin 1.1 g/dL (3.4-5.0); Calcium 7.1 mg/dL (8.5-10.1); Magnesium 2.4 mg/dL (1.6-2.6)
[2020-02-03 09:15] LABS: BUN/Creatinine Ratio 56.5; Bilirubin, Total 0.2 mg/dL (0.2-1.0); Phosphorus 3.1 mg/dL (2.5-4.90); Total Protein 4.4 g/dL (6.4-8.2)
[2020-02-03] MEDS: Ensure HIGH Protein Chocolate 8oz Bottle PO SCH ×3 (10:17→18:00)
[2020-02-03] MEDS: PANTOPRAZOLE 40 MG/10 ML VIAL INJ IV SCH ×2 (10:18→22:19)
[2020-02-03] MEDS: SODIUM CHLOR 0.9% PF (SALINE LOCK) 10ML VIAL/SYR IV SCH ×2 (10:18→22:19)
[2020-02-03] MEDS: LACTATED RINGER'S 1,000 ML IV SCH (10:18)
[2020-02-03 13:00] VITALS: BP 93/59
--- NOTE | 2020-02-03 14:10 | NUR ---
ROUNDING MD Santiago JENNINGS AT BEDSIDE. ALL QUESTIONS AND CONCERNS ADDRESSED AT THIS TIME.
[2020-02-03 17:00] VITALS: BP 103/64
[2020-02-03] MEDS ORDERED: TPN PER PHARMACY IV NR ×11 (20:00)
[2020-02-03 22:00] VITALS: BP 92/60
--- NOTE | 2020-02-03 22:40 | NUR ---
Respiratory note: PT RESTING COMFORTABLY. NO RESPIRATORY DISTRESS NOTED. SPO2 97% ON RA, HR 60, RR 18, BS CLEAR/DIMINISHED BILATERALLY. PT INFORMED TO PUSH CALL BUTTON IF INCREASED WOB, SOB, OR WHEEZING OCCURS. NO FURTHER RESPIRATORY INTERVENTIONS INDICATED. CHARTING COMPLETE FROM OUTSIDE OF PT ROOM.
[2020-02-04 05:00] VITALS: BP 92/62
[2020-02-04] MEDS: ACCU-CHEK COMFORT CURVE STRIP VI SCH ×4 (06:00→23:58)
[2020-02-04] MEDS: InsuLIN REG 1unit/0.01ml Soln (100units/ml) SC SCH ×4 (06:00→23:57)
[2020-02-04 06:24] LABS: Albumin 1.2 g/dL (3.4-5.0); Calcium 7.1 mg/dL (8.5-10.1); Magnesium 2.2 mg/dL (1.6-2.6); Potassium 3.9 mmol/L (3.5-5.1)
[2020-02-04 06:28] LABS: BUN/Creatinine Ratio 66.7; Bilirubin, Total 0.1 mg/dL (0.2-1.0); Phosphorus 3.4 mg/dL (2.5-4.90); Total Protein 4.3 g/dL (6.4-8.2)
[2020-02-04] MEDS: PIPERACILLIN-TAZOB 3.375GM 100 ML IV SCH ×3 (06:29→23:57)
[2020-02-04] MEDS: Ensure HIGH Protein Chocolate 8oz Bottle PO SCH ×3 (08:00→17:21)
[2020-02-04 09:00] VITALS: BP 103/66
[2020-02-04] MEDS: SODIUM CHLOR 0.9% PF (SALINE LOCK) 10ML VIAL/SYR IV SCH ×2 (09:44→23:57)
[2020-02-04] MEDS: PANTOPRAZOLE 40 MG/10 ML VIAL INJ IV SCH ×2 (09:44→23:56)
[2020-02-04 12:43] VITALS: BP 96/57
[2020-02-04] MEDS ORDERED: FUROSEMIDE 40 MG/4 ML VIAL IV ONE (13:45)
[2020-02-04 16:54] VITALS: BP 96/64
[2020-02-04] MEDS ORDERED: TPN PER PHARMACY IV NR ×11 (20:00)
--- NOTE | 2020-02-04 20:00 | NUR ---
Opening Shift Note Assumed care of patient. Awake, alert and oriented x4. No S/S of distress/SOB or pain. Instructed on POC and to call for assist PRN. Bed locked, in lowest position, call light within reach, side rails up x2. Will continue to monitor for changes Q1hr and PRN.
[2020-02-04 22:00] VITALS: BP 98/64
[2020-02-05 05:00] VITALS: BP 89/57
[2020-02-05] MEDS: InsuLIN REG 1unit/0.01ml Soln (100units/ml) SC SCH ×4 (06:00→23:02)
[2020-02-05] MEDS: ACCU-CHEK COMFORT CURVE STRIP VI SCH ×4 (06:34→23:02)
[2020-02-05] MEDS: PIPERACILLIN-TAZOB 3.375GM 100 ML IV SCH ×3 (06:35→22:45)
[2020-02-05 07:10] LABS: Basophils # (auto) 0 10 ^3/uL (0-0.2); Eosinophils # (auto) 0 10 ^3/uL (0-0.8); Hemoglobin 7.7 g/dL (13.5-17.5); Monocytes # (auto) 0.3 10 ^3/uL (0-1.3); Neutrophils # (auto) 2.6 10 ^3/uL (1.6-8.6); White Blood Cell 3.4 10^3/uL (4.4-10.8)
[2020-02-05 07:13] LABS: Basophils % (auto) 1.4 % (0.0-2.0); Eosinophils % (auto) 0.1 % (0.0-7.0); Hematocrit 23.4 % (41.0-53.0); Lymphocytes # (auto) 0.5 10 ^3/uL (0.4-5.4); Lymphocytes % (auto) 15.4 % (10.0-50.0); Mean Corpuscular Hemoglobin 26.4 pg (28.0-32.0); Mean Corpuscular Hgb Conc. 33.1 g/dL (32.0-36.0); Mean Corpuscular Volume 79.8 fL (80.0-100.0); Monocytes % (auto) 8.2 % (0.0-12.0); Neutrophils % (auto) 74.9 % (37.0-80.0); Platelet Count (auto) 346 10^3/uL (140-450); Red Blood Cells 2.93 10^6/uL (4.5-5.90)
[2020-02-05 07:24] LABS: Red Cell Distribution Width 23.4 % (11.8-14.3)
[2020-02-05 07:29] LABS: Potassium 3.9 mmol/L (3.5-5.1)
[2020-02-05 07:40] LABS: Albumin 1.2 g/dL (3.4-5.0); BUN/Creatinine Ratio 54.5; Bilirubin, Total 0.1 mg/dL (0.2-1.0); Calcium 7.4 mg/dL (8.5-10.1); Magnesium 2.1 mg/dL (1.6-2.6); Phosphorus 3.6 mg/dL (2.5-4.90); Pre Albumin 7.9 mg/dL (20.0-40.0); Total Protein 4.5 g/dL (6.4-8.2)
[2020-02-05] MEDS: Ensure HIGH Protein Chocolate 8oz Bottle PO SCH ×3 (08:00→17:38)
[2020-02-05 08:42] VITALS: BP 96/59
[2020-02-05] MEDS: SODIUM CHLOR 0.9% PF (SALINE LOCK) 10ML VIAL/SYR IV SCH ×2 (09:14→22:00)
[2020-02-05] MEDS: PANTOPRAZOLE 40 MG/10 ML VIAL INJ IV SCH ×2 (09:14→22:45)
--- NOTE | 2020-02-05 10:45 | NUR ---
Pt refused PT tx reporting a migraine. RN informed. Addendum: 02/05/20 at 1133 by Fran Hernandez HYSTER DRIVER Amended: Links added.
--- NOTE | 2020-02-05 12:42 | NUR ---
Nutrition Follow-up Notes Wt.: 60.0 kg Pt on full liq diet with TPN order at 61 ml/hr to provide 1580 kcal and 65g of protein. This TPN order provides 90-106% of energy needs and 100-130% of protein needs. Unable to see pt as pt is COVID positive in COVID wing. Est energy needs 4046-7527 kcal (30-35 kcal/kg BW 49.895kg) Est protein needs 50-65g (1-1.3g/kg BW 49.895 d/t underwt, low alb) Will continue to monitor and reassess prn. Labs: Creat 0.22L, GLUC 118H, Ca 7.4L, Alb 1.2L Skin: Abram scale 16 mod risk. refer to WC notes for details GI: Pt had 1 BM 02/02 per web content executive. PES: Partially resolved: Pt BMI 18.8 kg/m2 1) Underweight aeb pt is 69% of IBW and pt BMI is 16.2kg/m2 r/t caloric intake less than energy needs Inadequate oral intake aeb pt NPO and pt with TPN running r/t current medical condition Will continue to monitor PO intake, PN tolerance, skin status, pertinent labs and weight trend. F/u in 3-5 days. Rec.: )1) Advance diet as medically feasible 2) consider to taper off PN support if pt is able to tolerate PO and has adequate PO. 3) continue current plan of care
[2020-02-05 13:00] VITALS: BP 98/62
[2020-02-05] MEDS ORDERED: ZINC SULFATE 220mg CAP or TAB PO ONE (13:30)
[2020-02-05] MEDS ORDERED: ASCORBIC ACID 1,000 MG TAB PO ONE (13:45)
[2020-02-05 16:50] VITALS: BP 117/67
[2020-02-05] MEDS ORDERED: TPN PER PHARMACY IV NR ×11 (20:00)
[2020-02-05 22:00] VITALS: BP_SYST 113; BP_SYST 65; BP_DIAS 65
--- NOTE | 2020-02-06 05:00 | NUR ---
UNABLE TO DRAW LABS. LAB CONTACTED AND INFORMED.
[2020-02-06] MEDS: ACCU-CHEK COMFORT CURVE STRIP VI SCH ×3 (05:31→18:00)
[2020-02-06] MEDS: InsuLIN REG 1unit/0.01ml Soln (100units/ml) SC SCH ×3 (05:31→18:00)
[2020-02-06 05:54] VITALS: BP 99/60
[2020-02-06] MEDS: PIPERACILLIN-TAZOB 3.375GM 100 ML IV SCH ×3 (06:03→23:57)
--- NOTE | 2020-02-06 07:10 | NUR ---
Respiratory note: PT IS AWAKE, AND ALERT. NO RESPIRATORY DISTRESS NOTED. SPO2 99% ON RA, HR 60, RR 16, BS CLEAR/DIMINISHED BILATERALLY. NO FURTHER RESPIRATORY INTERVENTIONS INDICATED. WILL CONTINUE TO MONITOR PT. CHARTING COMPLETE FROM OUTSIDE OF ROOM.
--- NOTE | 2020-02-06 07:30 | NUR ---
Opening Shift Note Assumed care of patient, awake and alert. No S/S of distress/SOB or pain. Instructed on POC and to call for assist PRN, will continue to monitor for changes Q1hr and PRN. Fall precautions in place per safety protocol.
[2020-02-06] MEDS: Ensure HIGH Protein Chocolate 8oz Bottle PO SCH ×3 (08:00→18:00)
[2020-02-06 08:30] VITALS: BP 97/64
[2020-02-06 08:55] LABS: Albumin 1.3 g/dL (3.4-5.0); Calcium 7.3 mg/dL (8.5-10.1); Magnesium 2.1 mg/dL (1.6-2.6); Potassium 3.7 mmol/L (3.5-5.1)
[2020-02-06 08:59] LABS: BUN/Creatinine Ratio 46.2; Bilirubin, Total 0.1 mg/dL (0.2-1.0); Phosphorus 3.2 mg/dL (2.5-4.90); Total Protein 4.6 g/dL (6.4-8.2)
[2020-02-06] MEDS: PANTOPRAZOLE 40 MG/10 ML VIAL INJ IV SCH ×2 (10:18→21:19)
[2020-02-06] MEDS: ASCORBIC ACID 1,000 MG TAB PO SCH (10:18)
[2020-02-06] MEDS: SODIUM CHLOR 0.9% PF (SALINE LOCK) 10ML VIAL/SYR IV SCH ×2 (10:18→21:06)
[2020-02-06] MEDS: ZINC SULFATE 220mg CAP or TAB PO SCH (10:18)
--- NOTE | 2020-02-06 10:30 | NUR ---
Pt refused PT tx for today. Addendum: 02/06/20 at 1258 by Fran Hernandez CHILD WELFARE CONSULTANT Amended: Links added.
--- NOTE | 2020-02-06 11:16 | NUR ---
1100 - Contacted by [facility] transfer center reqarding transfer to higher level of care. Per recruiter coordinator Germán, the facility is not accepting any COVID 19 patients. Patient could possibly be seen as an outpatient once he recovers from COVID. Still pending answer from [facility] transfer center.
[2020-02-06 12:00] VITALS: BP 170/69
--- NOTE | 2020-02-06 12:10 | NUR ---
BP BP reassessed. Current BP is 111/69. Will cont to monitor.
--- NOTE | 2020-02-06 15:41 | NUR ---
Hospitalist MD Ravi at bedside aware of patient status. MD Ravi discussed hospice care with patient, patient verbalized agreement. Per MD Ravi, she will discuss plan of care with patient's brother Raymond. Bertrand Coreas contact info is [phone]
[2020-02-06 16:30] VITALS: BP 104/64
--- NOTE | 2020-02-06 16:38 | NUR ---
TPN TPN slowed to 33ml's/hr to ween off per pharmacy. Will cont to monitor patient.
--- NOTE | 2020-02-06 19:20 | NUR ---
Opening note Assumed care of patient. Patient alert and orientated x4. No SOB or distress noted. Patient resting in bed watching tv. Patient was off of TPN. Tolerating fluids ok, per patient. Poc discussed. No questions at this time. Bed locked in lowest position. Side rails up x2. Call light within reach. Will continue to monitor.
--- NOTE | 2020-02-06 19:35 | NUR ---
ENDORSED CARE TO NIGHT FLASH REEVES. PATIENT RESTING IN BED, NO DISTRESS, SOB, OR PAIN NOTED AT THIS TIME.
[2020-02-06] MEDS ORDERED: TPN PER PHARMACY IV NR ×11 (20:00)
--- NOTE | 2020-02-06 21:18 | NUR ---
Pharmacy Pharmacy called asked if patient was on TPN. Patient is currently off per md orders to wean off. Pharmacist instructed me to d'c the order for TPN. Will continue to monitor.
[2020-02-06 21:51] VITALS: BP 99/57
[2020-02-07 05:05] VITALS: BP 106/71
[2020-02-07] MEDS: PIPERACILLIN-TAZOB 3.375GM 100 ML IV SCH ×3 (06:05→21:43)
--- NOTE | 2020-02-07 07:09 | NUR ---
Closing note Endorsed care to day shift FLASH Fischer.
[2020-02-07] MEDS: Ensure HIGH Protein Chocolate 8oz Bottle PO SCH ×3 (08:00→18:30)
[2020-02-07 09:00] VITALS: BP 93/57
--- NOTE | 2020-02-07 09:39 | NUR ---
RE-ASSESSMENT PT WAS ACCEPTED BY [facility], PENDING DC ORDER. PT TO DC TO [facility]. TEAM TRUCK DRIVER UPDATED BEDSIDE MARLYS VIDALES TO REMAIN AVAILABLE NEEDED. Addendum: 02/07/20 at 1158 by WERNER PETTY SS DC ORDER SUBMITTED, PT PENDING TRANSFER TO [facility]. HOSPICE TO COORDINATE DME WITH PT AND FAMILY.
[2020-02-07 10:18] LABS: Hematocrit 26.8 % (41.0-53.0); Hemoglobin 8.5 g/dL (13.5-17.5)
[2020-02-07] MEDS: ASCORBIC ACID 1,000 MG TAB PO SCH (10:18)
[2020-02-07] MEDS: ZINC SULFATE 220mg CAP or TAB PO SCH (10:18)
[2020-02-07] MEDS: PANTOPRAZOLE 40 MG/10 ML VIAL INJ IV SCH ×2 (10:18→21:42)
[2020-02-07] MEDS: SODIUM CHLOR 0.9% PF (SALINE LOCK) 10ML VIAL/SYR IV SCH ×2 (10:18→21:43)
[2020-02-07] MEDS ORDERED: PANT40TA2 PO (11:18)
[2020-02-07] MEDS ORDERED: ZINC220T6 PO (11:18)
[2020-02-07] MEDS ORDERED: LEVO750T8 PO (11:18)
[2020-02-07] MEDS ORDERED: ASCO10003 PO (11:18)
[2020-02-07] MEDS ORDERED: SACC250C PO (11:18)
[2020-02-07] MEDS ORDERED: NUTR-559 PO (11:19)
--- NOTE | 2020-02-07 11:33 | NUR ---
Hospitalist Spoke to MD Ravi regarding DC order. Per MD Ravi, she will input D/C order. Patient ill be D/C'd on Hospice, patient is to follow-up with D/C clinic in 7 days. Patient will be D/C'd on a full liquid diet per MD Ravi orders and PICC line is to be removed. Patient Will also need to request walker through hospice per MD Ravi. POC discussed with patient. Will cont to monitor patient.
--- NOTE | 2020-02-07 11:40 | NUR ---
Nutrition Follow-up Notes Wt.: 55.4 kg Pt on full liq diet off PN support with ensure HP tid with fair PO of avh 65% x 4 per RN doc. Unable to see pt as pt is COVID positive in COVID wing. Est energy needs 7422-9814 kcal (30-35 kcal/kg BW 49.895kg) Est protein needs 50-65g (1-1.3g/kg BW 49.895 d/t underwt, low alb) Will continue to monitor and reassess prn. Labs: GLU 124 H, CA 7.3 L, ALB 1.3 L. Skin: Abram scale 19 low risk. refer to WC notes for details GI: Pt had 1 BM 02/02 per arterial embalmer. PES: Partially resolved: Pt BMI 18.8 kg/m2 1) Underweight aeb pt is 69% of IBW and pt BMI is 16.2kg/m2 r/t caloric intake less than energy needs Inadequate oral intake aeb pt NPO and pt with TPN running r/t current medical condition Will continue to monitor PO intake, skin status, pertinent labs and weight trend. F/u in 3-5 days. Rec.: )1) Advance diet as medically feasible 2) continue current plan of care
[2020-02-07 12:35] VITALS: BP 104/65
--- NOTE | 2020-02-07 16:30 | NUR ---
Transportation Per Dilip FRANKEL, transportations will be set up my Hospice. Will cont to monitor patient.
[2020-02-07 17:28] VITALS: BP 101/59
--- NOTE | 2020-02-07 19:24 | NUR ---
Endorsed care to night FLASH Lujan including patient being accepted to [facility] and patient not D/C's due to no transportations arrangement done by hospice.
--- NOTE | 2020-02-07 19:26 | NUR ---
Opening note Assumed care of patient. Patient alert and orientated x4. Patient on his cell phone watching videos. NO sob or distress noted. POC discussed. No questions at this time. Bed locked in lowest position, side rails up x2. Call light within reach. Will continue to monitor.
[2020-02-07 21:00] VITALS: BP 93/57
[2020-02-08 05:00] VITALS: BP 95/63
[2020-02-08] MEDS: PIPERACILLIN-TAZOB 3.375GM 100 ML IV SCH (06:41)
--- NOTE | 2020-02-08 07:35 | NUR ---
Closing note Endorsed care to day shift FLASH Fischer.
[2020-02-08] MEDS: Ensure HIGH Protein Chocolate 8oz Bottle PO SCH ×3 (08:00→18:00)
[2020-02-08 08:06] VITALS: BP 113/62
[2020-02-08] MEDS: PANTOPRAZOLE 40 MG/10 ML VIAL INJ IV SCH ×2 (10:22→22:30)
[2020-02-08] MEDS: ASCORBIC ACID 1,000 MG TAB PO SCH (10:22)
[2020-02-08] MEDS: ZINC SULFATE 220mg CAP or TAB PO SCH (10:22)
[2020-02-08] MEDS: SODIUM CHLOR 0.9% PF (SALINE LOCK) 10ML VIAL/SYR IV SCH ×2 (10:23→22:30)
--- NOTE | 2020-02-08 12:29 | NUR ---
Hospice Transportation Spoke to Rowan from [facility], Per Rowan they are still trying to find transportation for patient. Per Rowan, she is having a difficult time finding services that will transport a covid positive patient. Per Rowan, She will cont to try and find a transportation service. Will cont to monitor patient.
[2020-02-08 13:00] VITALS: BP 119/72
[2020-02-08 17:00] VITALS: BP 103/64
--- NOTE | 2020-02-08 20:00 | NUR ---
Opening Shift Note Assumed care of patient, awake and alert x4. Patient denies pain or shortness of breath at this time. No sign/symptoms of distress noted or verbalized at this time. Instructed on plan of care and encouraged patient to call for assistance as needed, patient verbalized understanding. Bed is locked in lowest position, side rails x 2 are up, and call light is within reach.
[2020-02-08 22:00] VITALS: BP 108/69
[2020-02-09 05:00] VITALS: BP 92/54
[2020-02-09] MEDS: Ensure HIGH Protein Chocolate 8oz Bottle PO SCH (07:54)
--- NOTE | 2020-02-09 09:30 | NUR ---
D/C Planning Per Rowan with [facility] transportation mushroom picker will be at 10:30am. Informed FLASH johnson.
[2020-02-09] MEDS: PANTOPRAZOLE 40 MG/10 ML VIAL INJ IV SCH (09:53)
[2020-02-09] MEDS: SODIUM CHLOR 0.9% PF (SALINE LOCK) 10ML VIAL/SYR IV SCH (09:53)
[2020-02-09] MEDS: ASCORBIC ACID 1,000 MG TAB PO SCH (09:54)
[2020-02-09] MEDS: ZINC SULFATE 220mg CAP or TAB PO SCH (09:54)
[2020-02-09] MEDS ORDERED: levoFLOXacin 250 MG TAB PO SCH (10:00)
--- NOTE | 2020-02-09 10:32 | NUR ---
Discharge Went over discharge paperwork with patient. Medications at bedside were packed with patient's belongings. PICC removed intact, no problems. All ID bands removed. Telemetry removed, cleaned properly, sent to ICU per hospital protocol. Patient was assisted with dressing. All belongings packed into patient belongings bag. Patient ready for pickup by [facility] transportation.
== END 2020-02-09 11:08 | disposition hospice, home (50) | DRG 137 ==
LOC: ER 22:58 → EDBD 22:58 → TELE 22:59 → TELE-CENTR 01-27 08:13 → TELE-EAST 02-02 04:31
PROVIDERS: ADMIT Nurse Practitioner; ATTEND Internal Medicine
PROC: 30233K1 Transfusion of Nonautologous Frozen Plasma into Peripheral Vein, Percutaneous Approach (ICD-10-PCS; 2020-01-26)
PROC: 0DB68ZX Excision of Stomach, Via Natural or Artificial Opening Endoscopic, Diagnostic (ICD-10-PCS; 2020-01-26)
PROC: 30230N1 Transfusion of Nonautologous Red Blood Cells into Peripheral Vein, Open Approach (ICD-10-PCS; principal; 2020-01-26 14:15)
PROC: 02HV33Z Insertion of Infusion Device into Superior Vena Cava, Percutaneous Approach (ICD-10-PCS; 2020-01-29)
DX: U07.1 COVID-19 (principal); I26.99 Other pulmonary embolism without acute cor pulmonale; R57.8 Other shock; E43 Unspecified severe protein-calorie malnutrition; R18.8 Other ascites; C16.9 Malignant neoplasm of stomach, unspecified; I82.412 Acute embolism and thrombosis of left femoral vein; R64 Cachexia; K25.4 Chronic or unspecified gastric ulcer with hemorrhage; J12.89 Other viral pneumonia; J43.9 Emphysema, unspecified; D50.0 Iron deficiency anemia secondary to blood loss (chronic); J90 Pleural effusion, not elsewhere classified; J98.11 Atelectasis; N40.0 Benign prostatic hyperplasia without lower urinary tract symptoms; K31.89 Other diseases of stomach and duodenum; I82.431 Acute embolism and thrombosis of right popliteal vein; K21.9 Gastro-esophageal reflux disease without esophagitis; E03.9 Hypothyroidism, unspecified; E87.6 Hypokalemia; K44.9 Diaphragmatic hernia without obstruction or gangrene; Z68.1 Body mass index [BMI] 19.9 or less, adult; Z80.1 Family history of malignant neoplasm of trachea, bronchus and lung; Z80.0 Family history of malignant neoplasm of digestive organs; Z79.899 Other long term (current) drug therapy
CPT/HCPCS: 36415; 36569; 36600; 43239; 71045; 71250; 71260; 74176; 74177; 76536; 80053; 81001; 82040; 82150; 82378; 82805; 82962; 83605; 83690; 83735; 83880; 84100; 84439; 84443; 84478; 85014; 85018; 85025; 85610; 85730; 86141; 86301; 86850; 86900; 86901; 86920; 87040; 87086; 93005; 93970; 94640; 97110; 97116; 97163; 97530; 99291; C9113; G0378; J1815; J2250; J2543; J3490; J7060; J7131